=== PATIENT | male | born 1995 | race African-American/Black ===

== ENCOUNTER 2021-11-09 15:17 | Emergency (ER) | payer SELFPAY ==
[~2021-11-09] VITALS: Ht 170.2 cm; Wt 81.0 kg
[2021-11-09 15:34] VITALS: BP 117/75
[2021-11-09] MEDS ORDERED: CEFTRIAXONE SODIUM 500 MG/VIAL IM ONE (17:00)
[2021-11-09] MEDS ORDERED: LIDOCAINE HCL 1% 20ML VIAL (Pyxis) INJ INFIL ONE (17:00)
[2021-11-09] MEDS: CEFTRIAXONE SODIUM 500 MG/VIAL IM NR ×2 (17:15→17:49)
[2021-11-09] MEDS ORDERED: DOXY100C5 MT (17:21)
[2021-11-12 04:08] LABS: NEISSERIA GONORRHOEAE NAA Positive (Negative)
== END 2021-11-09 17:50 | disposition home or self-care (01) ==
LOC: ER 15:17
DX: Z20.2 Contact with and (suspected) exposure to infections with a predominantly sexual mode of transmission (principal)
CPT/HCPCS: 87491; 87591; 96372; 99283; J0696; J3490